=== PATIENT | male | born 1940 | race Caucasian/White ===

== ENCOUNTER 2020-11-09 08:40 | Observation (INO) | payer MEDICARE ==
[2020-11-07 08:07] LABS: BASOPHILS # (AUTO) 0.1 (0.0-0.1); BASOPHILS % 0.6 % (0.0-1.0); EOSINOPHILS # (AUTO) 0.5 (0.0-0.4); EOSINOPHILS % 4.8 % (0.0-6.0); HEMATOCRIT 44.2 % (38.2-49.6); HEMOGLOBIN 14.5 g/dL (14.0-18.0); LYMPHOCYTES # (AUTO) 3.1 (1.0-3.2); LYMPHOCYTES % 32.6 % (18.0-39.1); MEAN CORPUSCULAR HEMOGLOBIN 29.6 pg (28-32); MEAN CORPUSCULAR HGB CONC 32.8 g/dL (31-35); MEAN CORPUSCULAR VOLUME 90.2 fL (81-99); MONOCYTES # (AUTO) 0.9 (0.2-0.8); MONOCYTES % 9.2 % (4.4-11.3); NEUTROPHILS % 52.5 % (38.7-80.0); PLATELET COUNT 243 x10e3/uL (140-360); RED CELL DISTRIBUTION WIDTH 13.4 % (11.7-14.4)
[2020-11-07 08:23] LABS: ANION GAP 15.9 mmol/L (8-16); CALCIUM 8.9 mg/dL (8.4-10.2); CREATININE, SERUM 1.29 mg/dL (0.72-1.25); POTASSIUM 3.9 mmol/L (3.5-5.1)
[2020-11-07 08:33] LABS: INR 0.9; PROTHROMBIN TIME 12.7 seconds (11.9-14.5)
[2020-11-07 08:34] LABS: PARTIAL THROMBOPLASTIN TIME 33.2 seconds (23.8-35.5)
[~2020-11-09] VITALS: Ht 175.3 cm; Wt 80.3 kg
[~2020-11-09 08:40] MED LIST: ACETAMINOPHEN 1000 MG/100 ML 100 ML IV ONE; ASPIRIN81 MG PO; ATORVASTATIN CA20 MG PO; CARVEDILOL12.5 MG PO; CENTRUM ADULTS1 EACH PO; FISH OIL 1,0001 EAC2 PO; GLIPIZIDE5 MG PO; HYDRALAZINE HCL50 MG PO; LANTUS 3ML100 UNITS/ SC; LEXAPRO10 MG PO; LIDOCAINE HCL (LTA) 4 ML SOLN ONE; MONTELUKAST SOD10 MG PO; NIFEDIPINE ER30 M1 PO; TRIAMTERENE-HCTZ1 EA PO
[2020-11-09] MEDS ORDERED: LIDOCAINE 1% W/EPINEPHRINE 20 ML VIAL ONE (10:13)
[2020-11-09] MEDS ORDERED: THROMBIN FOR SOLN 5,000 UNIT VIAL ONE (10:14)
[2020-11-09] MEDS ORDERED: Vancomycin IV 1 GM VIAL ONE (10:14)
[2020-11-09] MEDS ORDERED: SODIUM CHLORIDE 0.9% 50ML 100 ML ONE (10:50)
[2020-11-09] MEDS ORDERED: MAGNESIUM/ALUMINUM/SIMETHICONE 30 ML UDC PO PRN (11:00)
[2020-11-09] MEDS ORDERED: MORPHINE SULFATE 5 MG/ML VIAL IM PRN (11:00)
[2020-11-09] MEDS ORDERED: DEXTROSE 50% SYRINGE 50 ML IV PRN ×2 (11:00→13:30)
[2020-11-09] MEDS ORDERED: PROMETHAZINE HCL (IM) 25 MG/ML VIAL IM PRN (11:00)
[2020-11-09] MEDS ORDERED: HYDROMORPHONE 2MG/ML 2 MG/ML ML IV PRN ×2 (11:00)
[2020-11-09] MEDS ORDERED: ACETAMINOPHEN 325 MG TAB PO PRN (11:00)
[2020-11-09] MEDS ORDERED: CARISOPRODOL 350 MG TAB PO PRN (11:00)
[2020-11-09] MEDS ORDERED: ONDANSETRON HCL INJ 2MG/ML 2ML 2 MG/ML VIAL IV PRN (11:00)
[2020-11-09] MEDS ORDERED: LACTATED RINGER'S 1,000 ML IV SCH (11:00)
[2020-11-09] MEDS ORDERED: OXYCODONE/ACETAMINOPHEN 5-325 1 EACH TABLET PO PRN (11:00)
[2020-11-09] MEDS ORDERED: PROPOFOL IV EMULSION 10 MG/ML 20 ML VIAL ONE (12:23)
[2020-11-09] MEDS ORDERED: ONDANSETRON HCL INJ 2MG/ML 2ML 2 MG/ML VIAL ONE (12:23)
[2020-11-09] MEDS ORDERED: LIDOCAINE HCL 2% LOCAL INJ 5 ML SDV VIAL INJ ONE (12:23)
[2020-11-09] MEDS ORDERED: GLYCOPYRROLATE INJ 0.2 MG/ML VIAL ONE (12:23)
[2020-11-09] MEDS ORDERED: DEXAMETHASONE SOD PHOS INJ 4 MG/ML VIAL ONE (12:23)
[2020-11-09] MEDS ORDERED: POVIDONE IODINE 0.05% 0.05 % ML PO ONE (12:23)
[2020-11-09] MEDS ORDERED: SEVOFLURANE INHAL SOLN 250 ML PEN BTL ONE (12:23)
[2020-11-09] MEDS ORDERED: ROCURONIUM BROMIDE 10 MG/ML 5ML VIAL IV ONE (12:23)
[2020-11-09] MEDS ORDERED: NEOSTIGMINE 1 MG/ML 10ML VIAL ONE (12:23)
[2020-11-09] MEDS ORDERED: KETOROLAC TROMETHAMINE 30 MG/ML VIAL ONE (12:23)
[2020-11-09] MEDS ORDERED: HYDROCODON-ACE1 EA12 PO (13:24)
[2020-11-09] MEDS ORDERED: FENTANYL CITRATE/PF 100MCG/2 ML INJ ONE (15:10)
[2020-11-09] MEDS: INSULIN LISPRO 100 UNIT/1 ML 3ML VIAL SQ SCH ×2 (16:30→21:00)
[2020-11-09 16:40] VITALS: BP 171/63
[2020-11-09 16:50] VITALS: BP 171/63
[2020-11-09] MEDS ORDERED: NON-FORMULARY MEDICATION (Hydralazine Hcl* 50 MG) PO SCH (17:00)
[2020-11-09] MEDS: CEPACOL SORE THROAT LOZENGES PO PRN (17:44)
[2020-11-09] MEDS: CARVEDILOL 12.5 MG TAB PO SCH (17:48)
[2020-11-09] MEDS: HYDRALAZINE HCL 25 MG TAB PO SCH (17:48)
[2020-11-09] MEDS ORDERED: SODIUM CHLORIDE 0.9% 50ML 50 ML ONE (18:28)
[2020-11-09] MEDS ORDERED: IOPAMIDOL 370 MG/ML 200 ML INFUS..BTL INJ ONE ×2 (18:29→22:13)
[2020-11-09 20:00] VITALS: BP 177/75
[2020-11-09 20:09] VITALS: BP 177/75
[2020-11-09] MEDS ORDERED: NIFEDIPINE CR 30 MG TAB PO SCH (21:00)
[2020-11-09] MEDS ORDERED: ZOLPIDEM TARTRATE 5 MG TAB PO PRN (21:00)
[2020-11-09] MEDS ORDERED: ESCITALOPRAM OXALATE 10 MG TAB PO SCH (21:00)
[2020-11-09] MEDS ORDERED: MONTELUKAST SODIUM 10 MG TAB PO SCH (21:00)
[2020-11-09] MEDS ORDERED: ATORVASTATIN 40 MG TAB PO SCH (21:00)
[2020-11-09] MEDS: Cefazolin 1 GM in SODIUM CHLORIDE 0.9% 50ML 50 ML IV SCH (21:20)
[2020-11-10] VITALS: BP 171/65
[2020-11-10 04:00] VITALS: BP 179/62
[2020-11-10] MEDS: Cefazolin 1 GM in SODIUM CHLORIDE 0.9% 50ML 50 ML IV SCH ×2 (04:25→12:00)
[2020-11-10] MEDS: INSULIN LISPRO 100 UNIT/1 ML 3ML VIAL SQ SCH ×3 (07:30→12:30)
[2020-11-10] MEDS ORDERED: GLIPIZIDE 2.5 MG TABCR PO SCH (07:30)
[2020-11-10 08:16] VITALS: BP 165/72
[2020-11-10] MEDS ORDERED: TRIAMTERENE/HCTZ 37.5-25 MG TAB PO SCH (09:00)
[2020-11-10] MEDS: HYDRALAZINE HCL 25 MG TAB PO SCH (09:00)
[2020-11-10] MEDS ORDERED: MULTIVITAMINS/MINERALS TAB PO SCH (09:00)
[2020-11-10] MEDS: CARVEDILOL 12.5 MG TAB PO SCH (09:00)
[2020-11-10 09:30] VITALS: BP 165/72
[2020-11-10 12:05] VITALS: BP 149/54
== END 2020-11-10 13:14 | disposition home or self-care (01) ==
LOC: OR 08:40 → PACU V 10:52 → MED/SURG 16:45
PROVIDERS: ADMIT Neurological Surgery; ATTEND Neurological Surgery
DX: M48.05 Spinal stenosis, thoracolumbar region (principal); Z01.818 Encounter for other preprocedural examination; I25.10 Atherosclerotic heart disease of native coronary artery without angina pectoris; I10 Essential (primary) hypertension; E11.9 Type 2 diabetes mellitus without complications; E78.00 Pure hypercholesterolemia, unspecified
CPT/HCPCS: 36415 ×3; 63046; 63048; 71046; 71260; 72020; 80048; 82948 ×2; 85025; 85610; 85730; 86850; 86900; 88304; 93005; 97161; 99251; G0378 ×2; J0131; J0690 ×2; J1100; J1885; J2001; J2405; J2704; J2710; J3010; J3370; Q9967; 88305; 88311

== ENCOUNTER 2025-02-03 05:55 | Observation (INO) | payer MEDICARE ==
[2025-02-02 10:24] LABS: BASOPHILS % 0.5 % (0.0-1.0); EOSINOPHILS % 4.7 % (0.0-6.0); LYMPHOCYTES % 21.9 % (18.0-39.1); MONOCYTES % 8.5 % (4.4-11.3); NEUTROPHILS % 64.1 % (38.7-80.0); RED CELL DISTRIBUTION WIDTH 14.0 % (11.7-14.4)
[2025-02-02 10:47] LABS: INR 0.87
[2025-02-02 10:52] LABS: EST GLOMERULAR FILTRATION RATE 39.0 ML/MIN (>=60)
[~2025-02-03] VITALS: Ht 175.3 cm; Wt 86.2 kg
[~2025-02-03 05:55] MED LIST changes: -ACETAMINOPHEN 1000 MG/100 ML 100 ML IV ONE; +HYDROCODON-ACE1 EA12 PO; -LIDOCAINE HCL (LTA) 4 ML SOLN ONE
[2025-02-03] MEDS ORDERED: OMEPRAZOLE40 MG PO (07:20)
[2025-02-03] MEDS ORDERED: ISOSORBIDE MONO30 MG PO (07:22)
[2025-02-03] MEDS ORDERED: ENTRESTO 24 MG1 EACH PO (07:22)
[2025-02-03] MEDS ORDERED: FARXIGA10 MG PO (07:22)
[2025-02-03] MEDS ORDERED: SODIUM CHLORIDE 0.9% 100 ML ONE (07:31)
[2025-02-03] MEDS ORDERED: ROCURONIUM BROMIDE 1 ML IV ONE ×2 (07:31→08:48)
[2025-02-03] MEDS ORDERED: PHENYLEPHRINE HCL 1% 10 MG/ML VIAL ONE (07:31)
[2025-02-03] MEDS ORDERED: PROPOFOL IV EMULSION 10 MG/ML 20 ML VIAL ONE (07:31)
[2025-02-03] MEDS ORDERED: FENTANYL CITRATE/PF 100MCG/2 ML INJ ONE (07:31)
[2025-02-03] MEDS ORDERED: LIDOCAINE HCL 2% LOCAL INJ 5 ML SDV VIAL INJ ONE (07:31)
[2025-02-03] MEDS: LACTATED RINGER'S 1,000 ML ONE (08:16)
[2025-02-03] MEDS: CEFAZOLIN SODIUM 2 GM ONE (08:17)
[2025-02-03] MEDS ORDERED: DEXAMETHASONE SOD PHOS INJ 4 MG/ML SDV ONE (08:28)
[2025-02-03] MEDS ORDERED: ONDANSETRON HCL INJ 2MG/ML 2ML 2 MG/ML VIAL ONE (08:28)
[2025-02-03] MEDS ORDERED: SUGAMMADEX SODIUM 200 MG/2 ML VIAL IV ONE ×2 (08:46→09:33)
[2025-02-03] MEDS ORDERED: ACETAMINOPHEN 1000 MG/100 ML 100 ML IV ONE (08:47)
[2025-02-03] MEDS ORDERED: MAGNESIUM/ALUMINUM/SIMETHICONE 30 ML UDC PO PRN (09:45)
[2025-02-03] MEDS ORDERED: Morphine 10mg syringe 10 MG/ML INJ IV PRN (09:45)
[2025-02-03] MEDS ORDERED: ONDANSETRON HCL INJ 2MG/ML 2ML 2 MG/ML VIAL IV PRN (09:45)
[2025-02-03] MEDS ORDERED: ACETAMINOPHEN 325 MG TAB PO PRN (09:45)
[2025-02-03] MEDS ORDERED: PROMETHAZINE HCL (IM) 25 MG/ML VIAL IM PRN (09:45)
[2025-02-03] MEDS: LACTATED RINGER'S 1,000 ML IV SCH (11:00)
[2025-02-03 11:10] VITALS: BP 147/63; PULSE 62; RESP 17; TEMP 97.2; O2SAT 95
[2025-02-03 11:45] VITALS: BP 140/56; PULSE 59; RESP 18; TEMP 97.8; O2SAT 95
[2025-02-03] MEDS: OXYCODONE/ACETAMINOPHEN 5-325 1 EACH TABLET PO PRN ×2 (13:01→16:42)
[2025-02-03] MEDS ORDERED: SEVOFLURANE INHAL SOLN 250 ML PEN BTL ONE (13:28)
[2025-02-03 15:16] VITALS: BP 143/55; PULSE 62; RESP 17; TEMP 97.7; O2SAT 98
[2025-02-03] MEDS: CARVEDILOL 12.5 MG TAB PO SCH (16:42)
[2025-02-03] MEDS: PANTOPRAZOLE SODIUM 20 MG TABLET.DR PO SCH (16:42)
[2025-02-03] MEDS: HYDRALAZINE HCL 25 MG TAB PO SCH (16:43)
[2025-02-03 20:00] VITALS: BP 152/61; PULSE 64; RESP 16; TEMP 97.7; O2SAT 98
[2025-02-03] MEDS: ATORVASTATIN 20 MG TAB PO SCH (20:28)
[2025-02-03] MEDS: MONTELUKAST SODIUM 10 MG TAB PO SCH (20:28)
[2025-02-03] MEDS: NIFEDIPINE CR 30 MG TAB PO SCH (20:29)
[2025-02-03] MEDS: CARISOPRODOL 350 MG TAB PO PRN (20:30)
[2025-02-03] MEDS: ESCITALOPRAM OXALATE 10 MG TAB PO SCH (20:31)
[2025-02-03] MEDS: ZOLPIDEM TARTRATE 5 MG TAB PO PRN (20:31)
[2025-02-03 21:00] VITALS: BP 152/61; PULSE 64; RESP 16; TEMP 97.7; O2SAT 98
[2025-02-04 00:18] VITALS: BP 145/50; PULSE 60; RESP 17; TEMP 98.7; O2SAT 95
[2025-02-04 06:03] VITALS: BP 135/55; PULSE 64; RESP 16; TEMP 97.7; O2SAT 96
[2025-02-04 08:00] VITALS: BP 158/56; PULSE 64; RESP 17; TEMP 98.6; O2SAT 98
[2025-02-04 09:00] VITALS: BP 158/56; PULSE 64; RESP 17; TEMP 98.6; O2SAT 98
[2025-02-04] MEDS: GLIPIZIDE 5 MG TAB PO SCH (09:00)
[2025-02-04] MEDS: NON-FORMULARY MEDICATION (Dapagliflozin Propanediol (Farxiga) 10 MG) PO SCH (09:00)
[2025-02-04] MEDS: ISOSORBIDE MONONITRATE 30 MG TAB CR PO SCH (09:00)
[2025-02-04] MEDS: VALSARTAN 80 MG TAB PO SCH (09:00)
[2025-02-04] MEDS: MULTIVITAMINS/MINERALS TAB PO SCH (09:05)
[2025-02-04] MEDS: TRIAMTERENE/HCTZ 37.5-25 MG TAB PO SCH (09:06)
[2025-02-04 09:07] VITALS: PULSE 64
[2025-02-04 09:13] VITALS: BP 158/56
== END 2025-02-04 10:46 | disposition home or self-care (01) ==
LOC: OR 05:55 → PACU V 09:40 → MED/SURG2 10:31
PROVIDERS: ADMIT Neurological Surgery; ATTEND Neurological Surgery
DX: M48.062 Spinal stenosis, lumbar region with neurogenic claudication (principal); I10 Essential (primary) hypertension; E11.9 Type 2 diabetes mellitus without complications; Z79.4 Long term (current) use of insulin; I25.10 Atherosclerotic heart disease of native coronary artery without angina pectoris; Z87.891 Personal history of nicotine dependence; Z01.810 Encounter for preprocedural cardiovascular examination; Z01.812 Encounter for preprocedural laboratory examination; Z01.818 Encounter for other preprocedural examination
CPT/HCPCS: 36415 ×3; 63047; 63048; 71046; 72020; 80048; 82948 ×2; 85025; 85610; 85730; 86850; 86900; 88304; 88311; 93005; 97161; G0378 ×2; J0131; J0690 ×2; J1100; J2003; J2371; J2405; J2704; J3010; J7050; J7121 ×2